=== PATIENT | male | born 1980 | race Caucasian/White ===

== ENCOUNTER 2022-01-20 16:49 | Emergency (ER) | payer MEDICARE, MEDICAID ==
[2022-01-20 17:57] VITALS: BP 127/82; PULSE 78
== END 2022-01-20 17:50 | disposition home or self-care (01) ==
LOC: JP.ED 16:49
DX: G89.18 Other acute postprocedural pain (principal); M79.641 Pain in right hand; F17.210 Nicotine dependence, cigarettes, uncomplicated; Z88.6 Allergy status to analgesic agent; Z88.1 Allergy status to other antibiotic agents; Z88.8 Allergy status to other drugs, medicaments and biological substances
CPT/HCPCS: 99282; 99283

== ENCOUNTER 2022-05-27 20:50 | Emergency (ER) | payer MEDICARE, MEDICAID ==
[2022-05-27 21:30] VITALS: BP 124/79; PULSE 96
== END 2022-05-27 22:27 | disposition home or self-care (01) ==
LOC: JP.ED 20:50
DX: U07.1 COVID-19 (principal); J98.01 Acute bronchospasm; K42.9 Umbilical hernia without obstruction or gangrene; K21.9 Gastro-esophageal reflux disease without esophagitis; Z88.6 Allergy status to analgesic agent; Z88.1 Allergy status to other antibiotic agents; Z79.899 Other long term (current) drug therapy; Z86.16 Personal history of COVID-19; Z90.49 Acquired absence of other specified parts of digestive tract
CPT/HCPCS: 99283

== ENCOUNTER 2022-05-31 09:58 | Emergency (ER) | payer MEDICARE, MEDICAID ==
[2022-05-31 11:16] VITALS: BP 132/82; PULSE 85
== END 2022-05-31 13:26 | disposition home or self-care (01) ==
LOC: JP.ED 09:58
DX: K42.9 Umbilical hernia without obstruction or gangrene (principal); Z88.6 Allergy status to analgesic agent; Z88.1 Allergy status to other antibiotic agents; Z79.899 Other long term (current) drug therapy; Z86.16 Personal history of COVID-19; Z90.49 Acquired absence of other specified parts of digestive tract
CPT/HCPCS: 99283

== ENCOUNTER 2022-06-06 15:11 | Emergency (ER) | payer MEDICARE, MEDICAID | END 2022-06-06 15:42 | disposition left against medical advice (07) | LOC: JP.ED 15:11 | DX: Z53.21 Procedure and treatment not carried out due to patient leaving prior to being seen by health care provider (principal) ==

== ENCOUNTER 2022-06-16 23:12 | Emergency (ER) | payer MEDICARE, MEDICAID ==
[2022-06-16 23:33] VITALS: BP 146/90; PULSE 108
[2022-06-16] MEDS ORDERED: OLANZapine 5 MG Tab PO ONE (23:45)
[2022-06-17] MEDS ORDERED: Acetaminophen 500 MG Tab PO ONE
[2022-06-17 00:26] LABS: ESTIMATED GFR 113 mL/min (>60)
== END 2022-06-17 07:28 | disposition home or self-care (01) ==
LOC: JP.ED 23:12
DX: F43.0 Acute stress reaction (principal); Z59.812 Housing instability, housed, homelessness in past 12 months; Z88.6 Allergy status to analgesic agent; Z88.1 Allergy status to other antibiotic agents; Z79.899 Other long term (current) drug therapy; Z86.16 Personal history of COVID-19; Z90.49 Acquired absence of other specified parts of digestive tract; Z20.822 Contact with and (suspected) exposure to COVID-19
CPT/HCPCS: 36415; 80053; 80305; 80307; 81001; 82728; 83615; 85025; 85379; 86140; 99283; A9270; U0002

== ENCOUNTER 2023-01-02 22:42 | Emergency (ER) | payer MEDICARE ==
[2023-01-02 22:53] VITALS: BP 133/91; PULSE 83
== END 2023-01-02 23:19 | disposition home or self-care (01) ==
LOC: JP.ED 22:42
DX: J40 Bronchitis, not specified as acute or chronic (principal); Z88.1 Allergy status to other antibiotic agents; Z88.8 Allergy status to other drugs, medicaments and biological substances; Z86.16 Personal history of COVID-19; Z72.0 Tobacco use
CPT/HCPCS: 99282; 99283